=== PATIENT | male | born 1930 | race Caucasian/White ===

== ENCOUNTER 2017-06-27 13:15 | Emergency (ER) | payer OTHER, MEDICARE ==
[~2017-06-27] VITALS: Ht 177.8 cm; Wt 87.9 kg
[~2017-06-27 13:15] MED LIST: HYDROCHLOROTHIA25 MG PO; SIMVASTATIN40 MG PO; WARFARIN SODIUM2 MG PO
[2017-06-27 17:19] VITALS: BP 146/75
== END 2017-06-27 17:20 | disposition home or self-care (01) ==
LOC: EME 13:15
DX: M25.562 Pain in left knee (principal); R07.81 Pleurodynia; W01.0XXA Fall on same level from slipping, tripping and stumbling without subsequent striking against object, initial encounter; Z96.652 Presence of left artificial knee joint; Z96.649 Presence of unspecified artificial hip joint; Z79.01 Long term (current) use of anticoagulants; Z87.891 Personal history of nicotine dependence
CPT/HCPCS: 71010; 73502; 73564; 99281; 99284

== ENCOUNTER 2017-06-30 17:21 | Observation (INO) | payer OTHER, MEDICARE ==
[~2017-06-30] VITALS: Ht 180.3 cm; Wt 85.4 kg
[2017-06-30 18:35] LABS: ADD MIUA? YES; BILIRUBIN NEGATIVE; BLOOD NEGATIVE; COLOR AMBER ((YELLOW)); GLUCOSE (STRIP) 50; KETONES NEGATIVE; LEUKOCYTES NEGATIVE; NITRITE NEGATIVE; PROTEIN (STRIP) 100; SPECIFIC GRAVITY 1.031 (1.000-1.030)
[2017-06-30 18:47] LABS: BACTERIA NONE SEEN /HPF; EPITHELIAL CELLS RARE /HPF; MUCUS TRACE /LPF; RED BLOOD CELLS 0-5 /HPF (0-5); UCUL ADDED? NO; WHITE BLOOD CELLS 0-5 /HPF (0-5)
[2017-06-30 23:46] LABS: EOSINOPHIL (%) 0 % (0-5); IMMATURE GRANULOCYTE (%) 0.5 % (0.0-0.7); IMMATURE GRANULOCYTE COUNT 0.1 K/uL; INSTRUMENT ABS NEUTROPHIL CT 8.1 K/uL; LYMPHOCYTE COUNT 1.2 K/uL (1.0-2.8); MCH 32.2 PG (29.0-34.0); MCHC 32.4 G/DL (30.0-36.0); MCV 99.2 FL (86-99); MEAN PLAT.VOLUME 10.2 uM^3 (9.0-12.4); MONOCYTE (%) 11.4 % (3-12); MONOCYTE COUNT 1.2 K/uL (0-0.8); NEUTROPHIL (%) 76.2 % (45-76); NEUTROPHIL COUNT 8.1 K/uL (1.8-6.4); PLATELET COUNT 150 K/uL (156-360); RBC DIS.WIDTH-CV 13.3 % (11.8-14.6); RBC DIS.WIDTH-SD 49.1 % (39-53); RED BLOOD COUNT 3.73 M/uL (4.00-5.50); WHITE BLOOD COUNT 10.7 K/uL (4.1-10.2)
[2017-06-30 23:55] LABS: CHLORIDE 101 mEq/L (99-109); POTASSIUM 3.5 mEq/L (3.7-5.4); SODIUM 139 mEq/L (136-147)
[2017-06-30 23:58] LABS: GLUCOSE 254 mg/dL (70-99)
[2017-06-30 23:59] LABS: ANION GAP 10 MEQ/L (2-14)
[2017-07-01] LABS: TOTAL BILIRUBIN 1.9 mg/dL (0.0-1.0)
[2017-07-01 00:01] LABS: ALKALINE PHOSPHATASE 45 IU/L (3-129)
[2017-07-01 00:02] LABS: GFR ESTIMATE (CALCULATED) > 59 mL/min/
[2017-07-01 00:03] LABS: UREA NITROGEN (BUN) 21 mg/dL (9-23)
[2017-07-01] MEDS ORDERED: ELIQUIS5 MG PO ×2 (01:21→12:54)
[2017-07-01] MEDS ORDERED: HYDROCODON-ACE1 EAC9 PO (01:21)
[2017-07-01] MEDS ORDERED: ALPRAZOLAM0.5 MG PO (01:23)
[2017-07-01 01:49] LABS: PROTHROMBIN TIME 22.7 SEC (10.2-12.9)
[2017-07-01 01:52] LABS: PTT 35.5 SEC (25-37)
[2017-07-01 03:48] VITALS: BP 172/82
[2017-07-01 07:53] VITALS: BP 140/70
[2017-07-01 10:52] LABS: ALKALINE PHOSPHATASE 42 IU/L (3-129); ANION GAP 8 MEQ/L (2-14); CHLORIDE 100 MEQ/L (99-109); GFR ESTIMATE (CALCULATED) > 59 mL/min/; GLUCOSE 193 mg/dL (70-99); SAMPLE HEMOLYSIS CHECK 0; SAMPLE ICTERIC CHECK 0; SAMPLE LIPEMIA CHECK 0; SODIUM 141 MEQ/L (136-147); TOTAL BILIRUBIN 1.7 MG/DL (0.0-1.0); UREA NITROGEN (BUN) 23 mg/dL (9-23)
[2017-07-01 10:59] VITALS: BP 149/73
[2017-07-01 11:10] LABS: POTASSIUM 4.3 MEQ/L (3.7-5.4)
[2017-07-01] MEDS ORDERED: ACETAMINOPHEN-1 EAC1 PO (12:55)
== END 2017-07-01 14:09 ==
LOC: EME 17:21 → EDOF 07-01 02:05 → 5WEST 07-01 02:05 → EDOF 07-01 02:05 → ENRESERV 07-01 02:07 → 5WEST 07-01 03:26
PROVIDERS: Emergency Medicine; Internal Medicine
DX: S22.42XA Multiple fractures of ribs, left side, initial encounter for closed fracture (principal); M25.562 Pain in left knee; M25.462 Effusion, left knee; M25.461 Effusion, right knee; W01.0XXA Fall on same level from slipping, tripping and stumbling without subsequent striking against object, initial encounter; Y92.008 Other place in unspecified non-institutional (private) residence as the place of occurrence of the external cause; R09.02 Hypoxemia; R26.2 Difficulty in walking, not elsewhere classified; M17.11 Unilateral primary osteoarthritis, right knee; Z96.652 Presence of left artificial knee joint; I10 Essential (primary) hypertension; I48.2 Chronic atrial fibrillation; Z79.01 Long term (current) use of anticoagulants; E78.5 Hyperlipidemia, unspecified; E87.6 Hypokalemia; E80.6 Other disorders of bilirubin metabolism; R53.1 Weakness; M85.80 Other specified disorders of bone density and structure, unspecified site; J44.9 Chronic obstructive pulmonary disease, unspecified; I25.10 Atherosclerotic heart disease of native coronary artery without angina pectoris; H91.90 Unspecified hearing loss, unspecified ear; Z96.649 Presence of unspecified artificial hip joint; Z87.891 Personal history of nicotine dependence; Z83.3 Family history of diabetes mellitus
CPT/HCPCS: 70450; 71250; 73564; 73700; 80053; 81003; 83735; 85025; 85610; 85730; 99281; 99285; G0378; G8978 CL; G8979 CJ; G8980 GP CL; G8987 GO CL; G8988 GO CK; G8989 GO CL; J2270

== ENCOUNTER 2017-07-01 12:51 | Inpatient (IN) | payer OTHER, MEDICARE ==
[~2017-07-01] VITALS: Ht 180.3 cm; Wt 86.1 kg
[~2017-07-01 12:51] MED LIST changes: +ALPRAZOLAM0.5 MG PO; +ELIQUIS5 MG PO; +HYDROCODON-ACE1 EAC9 PO
[2017-07-01] MEDS ORDERED: ELIQUIS5 MG PO (12:54)
[2017-07-01] MEDS ORDERED: ACETAMINOPHEN-1 EAC1 PO (12:55)
[2017-07-01 14:34] VITALS: BP 136/65
[2017-07-01 22:51] VITALS: BP 160/69
[2017-07-02 05:00] VITALS: BP 137/70
[2017-07-02 06:16] LABS: HEMATOCRIT 35.2 % (38.0-50.0); MCHC 31.8 G/DL (30.0-36.0); MCV 100.6 FL (86-99); PLATELET COUNT 193 K/uL (156-360); RBC DIS.WIDTH-CV 13.2 % (11.8-14.6); RBC DIS.WIDTH-SD 49.2 % (39-53)
[2017-07-02 06:50] LABS: ALKALINE PHOSPHATASE 52 IU/L (3-129); ANION GAP 8 MEQ/L (2-14); CHLORIDE 100 MEQ/L (99-109); GFR ESTIMATE (CALCULATED) > 59 mL/min/; GLUCOSE 147 mg/dL (70-99); POTASSIUM 4.1 MEQ/L (3.7-5.4); SAMPLE HEMOLYSIS CHECK 0; SAMPLE ICTERIC CHECK 0; SAMPLE LIPEMIA CHECK 0; SODIUM 139 MEQ/L (136-147); TOTAL BILIRUBIN 1.5 MG/DL (0.0-1.0); UREA NITROGEN (BUN) 24 mg/dL (9-23)
[2017-07-03 05:27] VITALS: BP 160/74
[2017-07-03 15:24] VITALS: BP 137/75
[2017-07-04 05:56] VITALS: BP 193/76
[2017-07-04 09:00] VITALS: BP 168/76
[2017-07-04 15:15] VITALS: BP 159/74
[2017-07-05 06:05] VITALS: BP 148/66
[2017-07-05 16:13] VITALS: BP 144/67
[2017-07-06 05:38] VITALS: BP 169/77
[2017-07-06 15:30] VITALS: BP 150/79
[2017-07-07 05:38] VITALS: BP 143/68
[2017-07-07 15:16] VITALS: BP 131/60
[2017-07-08 05:32] VITALS: BP 141/62
[2017-07-08 15:05] VITALS: BP 141/68
[2017-07-09 05:22] VITALS: BP 152/68
[2017-07-09 15:54] VITALS: BP 130/60
[2017-07-10 05:03] VITALS: BP 136/71
[2017-07-10 15:06] VITALS: BP 147/77
[2017-07-11 05:03] VITALS: BP 140/77
[2017-07-11 15:03] VITALS: BP 143/71
[2017-07-12 05:40] VITALS: BP 160/84
[2017-07-12 15:22] VITALS: BP 143/67
[2017-07-13 06:00] VITALS: BP 165/71
[2017-07-13 15:14] VITALS: BP 143/70
[2017-07-14 05:37] VITALS: BP 163/72
[2017-07-14 15:55] VITALS: BP 131/62
[2017-07-15 05:59] VITALS: BP 140/70
[2017-07-15] MEDS ORDERED: SENNA PLUS TAB1 EACH PO (10:30)
[2017-07-15] MEDS ORDERED: TYLENOL REGULA325 MG PO (10:30)
[2017-07-15] MEDS ORDERED: THERAGRAN1 TABLET PO (10:30)
[2017-07-15] MEDS ORDERED: ALPRAZOLAM0.25 M2 PO (10:30)
[2017-07-15 12:32] LABS: HEMATOCRIT 37.6 % (38.0-50.0); MCH 32.5 PG (29.0-34.0); MCHC 32.2 G/DL (30.0-36.0); MCV 101.1 FL (86-99); MEAN PLAT.VOLUME 9.7 uM^3 (9.0-12.4); RBC DIS.WIDTH-CV 13.8 % (11.8-14.6); RBC DIS.WIDTH-SD 51.4 % (39-53); RED BLOOD COUNT 3.72 M/uL (4.00-5.50); WHITE BLOOD COUNT 5.5 K/uL (4.1-10.2)
[2017-07-15 12:35] LABS: PLATELET COUNT 369 K/uL (156-360)
[2017-07-15 13:20] LABS: ALKALINE PHOSPHATASE 76 IU/L (3-129); ANION GAP 7 MEQ/L (2-14); CHLORIDE 106 MEQ/L (99-109); GFR ESTIMATE (CALCULATED) > 59 mL/min/; GLUCOSE 93 mg/dL (70-99); POTASSIUM 4.4 MEQ/L (3.7-5.4); SAMPLE HEMOLYSIS CHECK 0; SAMPLE ICTERIC CHECK 0; SAMPLE LIPEMIA CHECK 0; SODIUM 143 MEQ/L (136-147); TOTAL BILIRUBIN 0.7 MG/DL (0.0-1.0); UREA NITROGEN (BUN) 9 mg/dL (9-23)
== END 2017-07-15 13:04 | disposition home health service (06) | DRG 561 ==
LOC: 3WEST 12:51 → ENPENDDIS 07-15 → 3WEST 07-15 13:04
PROVIDERS: Physical Medicine & Rehabilitation Pain Medicine; Psychiatry & Neurology Neurology
PROC: F07M0ZZ Range of Motion and Joint Mobility Treatment of Musculoskeletal System - Whole Body (ICD-10-PCS; principal; 2017-07-01)
DX: S22.42XD Multiple fractures of ribs, left side, subsequent encounter for fracture with routine healing (principal); R53.1 Weakness; R26.2 Difficulty in walking, not elsewhere classified; W01.0XXD Fall on same level from slipping, tripping and stumbling without subsequent striking against object, subsequent encounter; I48.2 Chronic atrial fibrillation; Z96.652 Presence of left artificial knee joint; E78.5 Hyperlipidemia, unspecified; J44.9 Chronic obstructive pulmonary disease, unspecified; Z87.891 Personal history of nicotine dependence; D69.6 Thrombocytopenia, unspecified; E87.6 Hypokalemia; M85.80 Other specified disorders of bone density and structure, unspecified site; D64.9 Anemia, unspecified; M17.11 Unilateral primary osteoarthritis, right knee; Z79.01 Long term (current) use of anticoagulants; I10 Essential (primary) hypertension; M25.462 Effusion, left knee
CPT/HCPCS: 80053; 85027; 97110 GO; 97530 GP